=== PATIENT | female | born 1955 | race Caucasian/White ===

== ENCOUNTER 2022-11-30 13:11 | Outpatient (CLI) | payer MEDICARE, OTHER ==
[~2022-11-30 13:11] MED LIST: Magnevist 469MG/ML 20 ML VIAL ONE
== END 2022-11-30 13:12 | disposition home or self-care (01) ==
LOC: CSHMRI 13:11
PROVIDERS: ATTEND Family Medicine
DX: M25.562 Pain in left knee (principal); S83.232A Complex tear of medial meniscus, current injury, left knee, initial encounter; M94.8X6 Other specified disorders of cartilage, lower leg; M25.462 Effusion, left knee
CPT/HCPCS: 82565